=== PATIENT | female | born 1960 | race Caucasian/White ===

== ENCOUNTER → 2016-05-23 | Outpatient (CLI) | payer OTHER ==
--- NOTE | 2016-05-23 11:01 | MA ---
Screening Digital Mammogram Clinical Indications: Routine screening. Technique: Standard cephalocaudal and mediolateral oblique projections are obtained. [facility] examinati [facility]. Comparison: January 2015, December 2013, December 2012, December and July 2009 Breast density: B; There are scattered fibroglandular densities. Findings: CAD was reviewed. Possibly architectural distortion developing in an area of a previous asy mmetry that is stable back to 2009.. The remainder of the left and right breast are stable. Impression: Possible developing architectural distortion upper left breast. BI-RADS 0: Needs additional imaging evaluation, left breast . Recommendation: Spot compression view and true lateral view. If architectural distortion persists, then attempt to localize in the orthogonal plane mammographically, and then proceed to ultrasound for further characterization and localization purposes.. [facility] will send a result letter to the patient. Negative mammography should not preclude additional workup of a clinically suspicious finding. The patient's information is entered into a reminder system with a target due date for her next mammo gram.
== END ==
LOC: BMCIMAGING 09:38
DX: Z12.31 Encounter for screening mammogram for malignant neoplasm of breast (principal)
CPT/HCPCS: G0202

== ENCOUNTER → 2016-05-31 | Outpatient (CLI) | payer OTHER ==
--- NOTE | 2016-05-31 10:35 | MA ---
Left Diagnostic Digital Mammogram with iCAD Clinical Indications: Possible architectural distortion on recent screening mammogram. Technique: Digital spot compression mediolateral oblique and true lateral views. This examination wa s processed by the iCAD computer-aided detection system. Comparison: Recent mammogram. April 2016, 2014, 2013, 2012 Breast Density: C, 50-75%. Findings: Previous asymmetric density identified is no longer detected on the additional views or tony e lateral views. No evidence of architectural distortion or dominant density in the upper outer left breast. This appears similar to previous studies. This is consistent with normal overlapping breast p arenchyma. Impression: ACR BI-RADS 2: Benign left mammogram. Recommendation: Annual mammograms with next screening mammograms in April 2017. [facility] will send a result letter to the patient. Negative mammography should not preclude additional workup of a clinically suspicious finding. Findings and recommendations have been discussed with the patient who agrees with the plan. The patient's information is entered into a reminder system with a target due date for her next mammo gram.
== END ==
LOC: BRMIMAGING 09:50
DX: R92.2 Inconclusive mammogram (principal)
CPT/HCPCS: G0206

== ENCOUNTER → 2016-06-26 | Outpatient (CLI) | payer OTHER | LOC: BRMIMAGING 12:40 | PROVIDERS: ATTEND Internal Medicine | DX: R10.31 Right lower quadrant pain (principal); N83.202 Unspecified ovarian cyst, left side | CPT/HCPCS: 76856-PO ==